=== PATIENT | male | born 1950 | race Caucasian/White ===

== ENCOUNTER 2018-05-26 11:23 | Emergency (ER) | payer MEDICARE ==
[~2018-05-26] VITALS: Ht 167.6 cm; Wt 79.0 kg
[2018-05-26] MEDS ORDERED: AMLO10TA80 MT (11:46)
[2018-05-26] MEDS ORDERED: benazepril (11:46)
[2018-05-26] MEDS ORDERED: atorvastatin (11:46)
[2018-05-26] MEDS ORDERED: ATEN50TA MT (11:46)
[2018-05-26] MEDS ORDERED: ASPI-1159 MT (11:46)
[2018-05-26] MEDS ORDERED: METF-414 PO (11:46)
[2018-05-26] MEDS ORDERED: insulin SUBCUT (11:46)
[2018-05-26] MEDS ORDERED: ACETAMINOPHEN 325MG TABLET PO ONE (14:00)
[2018-05-26 15:27] LABS: BASOPHILS % 0.5 % (0.0-2.0); EOSINOPHILS % 1.3 % (0.0-5.0); HEMOGLOBIN. 13.5 g/dL (14.0-18.0); LYMPHOCYTES % 21.2 % (20.0-50.0); MEAN CORPUSCULAR HEMOGLOBIN 29.4 pg (28.0-32.0); MONOCYTES % 12.2 % (2.0-8.0); NEUTROPHILS % 64.8 % (40.0-76.0); PLATELET 218 x1000/uL (130-400); RED BLOOD CELL COUNT 4.59 mill/uL (4.7-6.1); RED CELL DISTRIBUTION WIDTH 13.5 % (11.6-14.6)
[2018-05-26 15:30] LABS: CHLORIDE 94 mEq/L (98-107)
[2018-05-26 15:34] LABS: PARTIAL THROMBOPLASTIN TIME 26.3 sec (23.4-31.0)
[2018-05-26 17:17] VITALS: BP 159/63
== END 2018-05-26 17:19 | disposition home or self-care (01) ==
LOC: ER 11:23
DX: L03.115 Cellulitis of right lower limb (principal); E11.9 Type 2 diabetes mellitus without complications; I10 Essential (primary) hypertension; Z79.4 Long term (current) use of insulin; Z79.84 Long term (current) use of oral hypoglycemic drugs; Z79.899 Other long term (current) drug therapy
CPT/HCPCS: 36415; 80048; 93970; 99285

== ENCOUNTER 2018-06-26 11:06 | Emergency (ER) | payer MEDICARE, MEDICAID ==
[~2018-06-26] VITALS: Ht 165.1 cm; Wt 80.0 kg
[~2018-06-26 11:06] MED LIST: AMLO10TA80 MT; ASPI-1159 MT; ATEN50TA MT; METF-414 PO; atorvastatin; benazepril; insulin SUBCUT
[2018-06-26] MEDS ORDERED: IBUPROFEN 600MG TABLET PO ONE (12:15)
[2018-06-26 15:26] VITALS: BP 138/51
== END 2018-06-26 15:28 | disposition home or self-care (01) ==
LOC: ER 12:03
DX: S82.391A Other fracture of lower end of right tibia, initial encounter for closed fracture (principal); I10 Essential (primary) hypertension; E11.9 Type 2 diabetes mellitus without complications; Z98.890 Other specified postprocedural states; Z79.4 Long term (current) use of insulin; Z79.82 Long term (current) use of aspirin; X58.XXXA Exposure to other specified factors, initial encounter; Y93.89 Activity, other specified; Y92.018 Other place in single-family (private) house as the place of occurrence of the external cause
CPT/HCPCS: 29505; 73590; 99283

== ENCOUNTER → 2018-08-04 | Outpatient (CLI) | payer MEDICARE, MEDICAID | END | disposition home or self-care (01) | LOC: NM 08:45 | PROVIDERS: ATTEND Internal Medicine | DX: M84.462 Pathological fracture, left tibia (principal); M79.605 Pain in left leg | CPT/HCPCS: 78306; A9503 ==